=== PATIENT | female | born 1960 | race Caucasian/White ===

== ENCOUNTER 2017-03-22 09:13 | Emergency (ER) | payer BC ==
[~2017-03-22] VITALS: Ht 180.3 cm; Wt 79.4 kg
--- NOTE | 2017-03-22 09:22 | ER Report ---
History and Physical Time Seen By MD: 09:21 Hx. of Stated Complaint: Bumped left wrist 2 days ago. Now with continued pain. No swelling. No pacerations/abrasions HPI/ROS Hit left wrist onto a chair and now with pain with movement. No other injuries. No lacerations/abrasions. Remainder of the 14 system rev: Yes Allergies: Coded Allergies: No Known Drug Allergies (Unverified , 03/22/17) Home Meds Active Scripts Ketorolac Tromethamine (KETOROLAC TROMETHAMINE) 10 Mg Tab, 10 MG PO Q6H for 7 Days, #30 TAB Prov:DARIAN JIMENEZ MD 03/22/17 Reported Medications [[place]] No Conflict Check 03/22/17 Reviewed Nurses Notes: Yes Old Medical Records Reviewed: No Hx Smoking: Yes Smoking Status: Former Smoker Exposure to Second Hand Smoke?: No Hx Substance Use Disorder: No Hx Alcohol Use: No Constitutional Well appearing, non toxic, no distress Physical Exam HEENT: PERRL Neck: No midline c-spine TTP CV: RRR, no m/r/g Lungs: cta no w/r/r MSK: Left wrist with TTP at the volar ulnar area. No suffbox TTP. FROM. No effusions, no erythema, no abrasions/lacerations Medical Decision Making EKG/Imaging Imaging Left wrist: INTERPRETED BY ME: no fracture/dislocation. No soft tissue swelling. Normal wrist xray ED Course/Re-evaluation ED Course Minor blunt trauma to left wrist. N/V in tact thoughout. No evidence of infection. No fracture/dislocation on xray. No snuffbox TTP. Will place in splint and NSAIDs for pain relief Decision to Disposition Date: Mar 22, 2017 Decision to Disposition Time: 16:00 Depart Departure Latest Vital Signs Impression: Primary Impression: Contusion Condition: Improved Disposition: HOME OR SELF-CARE New Scripts Ketorolac Tromethamine (KETOROLAC TROMETHAMINE) 10 Mg Tab 10 MG PO Q6H for 7 Days, #30 TAB Prov: DARIAN JIMENEZ MD 03/22/17 Patient Instructions: Contusion in Adults (ED) Problem Qualifiers Primary Impression: Contusion Encounter type: initial encounter Contusion area: wrist Laterality: left Qualified Codes: S60.212A - Contusion of left wrist, initial encounter DARIAN JIMENEZ MD Mar 22, 2017 09:22
[2017-03-22] MEDS ORDERED: [UNRECOGNIZED DRUG - OTHER] (09:25)
[2017-03-22] MEDS ORDERED: IBUPROFEN 600 MG TAB PO ONE (09:40)
[2017-03-22] MEDS ORDERED: APAP/HYDROCODONE 325/5 TAB PO ONE (09:40)
--- NOTE | 2017-03-22 10:05 | RADIOLOGY IMAGING REPORT ---
FACILITY: [facility] - [place] PATIENT NAME: Jodie Headley : 1960 MR: [id number] V: [id number] EXAM DATE: ORDERING PHYSICIAN: DARIAN JIMENEZ TECHNOLOGIST: Location: [facility] - [place] Patient: Jodie Headley : 1960 Visit/Account:[id number] Date of Sevice: 03/22/2017 WRIST LEFT MIN 3 VIEW INDICATION: Nontraumatic pain and swelling COMPARISON: None available FINDINGS: 3 views obtained. No fracture or osseous destruction. Normal joint spaces and soft tissue s. IMPRESSION: Normal wrist radiographs. Report Dictated By: Enrique Gonzalez MD at 03/22/2017 9:59 AM Report E-Signed By: Enrique Gonzalez MD at 03/22/2017 10:00 AM WSN:[id number]
[2017-03-22 11:00] VITALS: BP 121/84
[2017-03-22] MEDS ORDERED: KET10 PO (11:17)
== END 2017-03-22 11:25 | disposition home or self-care (01) ==
LOC: ER 09:13
DX: S60.212A Contusion of left wrist, initial encounter (principal)
CPT/HCPCS: 73110; 99282; L3908

== ENCOUNTER → 2017-12-24 | Outpatient (CLI) | payer BC ==
[~2017-12-24] MED LIST: IOPAMIDOL 76% 75 ML INFUS BTL 75 ML ONE; KET10 PO; LEVO1TAB9 PO; [UNRECOGNIZED DRUG - OTHER]
--- NOTE | 2017-12-24 08:55 | RADIOLOGY IMAGING REPORT ---
[place] [facility] [place] NAME: Jodie Headley : 1960 MR: [id number] V: [id number] EXAM DATE: ORDERING PHYSICIAN: OPAL CORREA TECHNOLOGIST: Location: [facility] Patient: Jodie Headley : 1960 Visit/Account:[id number] Date of Sevice: 12/24/2017 CHEST W W/O CONTRAST History: Mass/lump upper left chest ADDITIONAL CLINICAL HISTORY: None TECHNIQUE: Contiguous axial images were performed through the chest to the level of the adrenal gla nds with and without IV contrast. Coronal and sagittal reformatting was also performed.Dose Lowerin g Technique One of the following dose optimization techniques was utilized in the performance of this exam: Autom ated exposure control; adjustment of the mA and/or kV according to the patient's size; or use of an i terative reconstruction technique. Specific details can be referenced in the facility's radiology C T exam operational policy. Contrast: 75 mL Isovue-370 COMPARISON STUDIES: none. Lungs / Pleura: Mildly irregular biapical pleural thickening and fibrotic changes are seen. This a ppears more prominent nodular on the left relative to the right. In the posterior lateral right uppe r lobe there is a 6 mm slightly irregular pulmonary nodule with fibrotic stranding towards the latera l pleural margin. This is best seen on image 97 of series 6. This may be related to the fibrotic ch konrad in the right pulmonary apex although discrete nodule not excluded. Also noted is a 3 mm noncalc ified nodule posterior aspect right upper lobe best seen on image 78 of series 6. Mediastinum/nodes: negative. Heart and vessels: negative. Musculoskeletal / Body wall: Metallic BB was placed on the patient's skin in location of the palpab le finding. This is along the anteromedial superior left thorax. A discrete mass is not seen in thi s location. There is a minimal S-shaped scoliosis of the thoracic spine. Mild spondylotic changes are present Upper abdomen: negative. IMPRESSION: There is irregular biapical pleural thickening and fibrotic change identified. This is more prominen t on the left relative to the right. Short-term interval follow-up recommended to exclude a developi ng mass lesion There are two slightly irregular pulmonary nodules seen in the right upper lobe. These may be second angel to the fibrotic changes however follow-up according to the Fleischner Society recommendations sug gest For multiple nodules measuring less than 6 mm, in a low risk patient (minimal or absent smoking history, no history of malignancy), no routine followup is recommended. In a high risk patient (smoki ng or malignancy history), optional 12 month followup can be obtained. A metallic BB was placed on the patient's skin location of the palpable finding along the anteromedia l superior left thorax. A discrete mass is not seen. If further diagnostic imaging is desired ultra sound or MR may be helpful Report Dictated By: Briana Zavala MD at 12/24/2017 8:37 AM Report E-Signed By: Briana Zavala MD at 12/24/2017 8:51 AM ROBINN:SIMA
== END ==
LOC: CT 01:40
PROVIDERS: ATTEND Family Medicine
DX: M41.84 Other forms of scoliosis, thoracic region (principal); R91.8 Other nonspecific abnormal finding of lung field; M47.896 Other spondylosis, lumbar region
CPT/HCPCS: 71270; Q9967

== ENCOUNTER → 2018-05-20 | Outpatient (CLI) | payer BC ==
[~2018-05-20] MED LIST changes: -IOPAMIDOL 76% 75 ML INFUS BTL 75 ML ONE
--- NOTE | 2018-05-20 17:06 | RADIOLOGY IMAGING REPORT ---
FACILITY: [facility] - [place] PATIENT NAME: Alexandra Longoria : 1960 MR: [id number] V: [id number] EXAM DATE: ORDERING PHYSICIAN: OPAL CORREA TECHNOLOGIST: Location: [facility] - [place] Patient: Alexandra Longoria : 1960 Visit/Account:[id number] Date of Sevice: 05/20/2018 CT CHEST W/O CONTRAST History: Lump on clavicle, lung nodule follow-up, history of asthma TECHNIQUE: Contiguous axial images were performed through the chest to the level of the adrenal gla nds. No IV contrast was administered. Coronal and sagittal reformatting was also performed.Dose Lower ing Technique One of the following dose optimization techniques was utilized in the performance of this exam: Autom ated exposure control; adjustment of the mA and/or kV according to the patient's size; or use of an i terative reconstruction technique. Specific details can be referenced in the facility's radiology C T exam operational policy. COMPARISON STUDIES: December 24, 2017. Lungs / Pleura: The biapical fibrotic changes appear similar to the prior study The previously noted 6 mm slightly irregular pulmonary nodule fibrotic stranding towards the lateral pleural margin in the right upper lobe appears relatively unchanged in size and is best appreciated o n image 78 of series 4 The 3 mm noncalcified nodule previously noted posterior aspect right upper lobe is unchanged and is b est seen on image 57 Mediastinum/nodes: negative. Heart and vessels: negative. Musculoskeletal / Body wall: There is a very gentle S-shaped scoliosis of the thoracic spine with m ild spondylotic changes. Clavicular mass is not identified Upper abdomen: Visualized abdominal viscera negative. IMPRESSION: Previous seen noted six moment or slightly irregular pulmonary nodule fibrotic stranding towards the lateral pleural margin of the right upper lobe appears relatively unchanged in size. The 3 mm noncal cified nodule in the posterior aspect right upper lobe also appears unchanged The biapical fibrotic changes also appear relatively stable FLEISCHNER SOCIETY FOLLOW-UP GUIDELINES FOR NEWLY DETECTED INCIDENTAL NODULES IN PERSONS 35 YEARS OF AGE OR OLDER. *These recommendations do NOT apply to lung cancer screening, patients with immunosuppression or coral ents with a known primary malignancy. MULTIPLE SOLID NODULES If nodule size is < 6 mm: * Low risk patient ? No routine follow-up. * High risk patient ? Optional CT at 12 months. If nodule size is 6-8 mm: * Low risk patient ? CT at 3-6 months, then consider CT at 18-24 months if no change. * High risk patient ? CT at 3-6 months, then CT at 18-24 months if no change. If nodule size is > 8 mm: * Low risk patient ? CT at 3-6 months, then consider CT at 18-24 months if no change. * High risk patient ? CT at 3-6 months, then consider CT at 18-24 months if no change. LOW RISK PATIENT: Minimal or absent history of tobacco use and of other known risk factors. HIGH RISK PATIENT: Tobacco use, family history of lung cancer, upper pulmonary lobe location of nodul e, presence of emphysema, pulmonary fibrosis, older age. Patti H, Sarina DP, Ramón ACEVES, et al. Guidelines for Management of Incidental Pulmonary Nodules Dete cted on CT Images: From the Fleischner Society 2017. Radiology. [facility] Report Dictated By: Briana Zavala MD at 05/20/2018 4:45 PM Report E-Signed By: Briana Zavala MD at 05/20/2018 5:01 PM WSN:[id number]
== END ==
LOC: CT 14:17
PROVIDERS: ATTEND Family Medicine
DX: R91.8 Other nonspecific abnormal finding of lung field (principal)
CPT/HCPCS: 71250

== ENCOUNTER → 2018-10-06 | Outpatient (CLI) | payer BC ==
--- NOTE | 2018-10-07 09:56 | RADIOLOGY IMAGING REPORT ---
[place] [facility] [place] RICH WILLARD : [id number] MR: [id number] V: [id number] EXAM DATE: ORDERING PHYSICIAN: LANI ALCANTARA TECHNOLOGIST: Arely Car PROCEDURE: BILATERAL DIGITAL SCREENING MAMMOGRAM WITH CAD ASSISTED INTERPRETATION & 3D TOMOSYNTHESIS REASON FOR STUDY: Screening. FAMILY HISTORY OF BREAST CANCER: None. BREAST PROCEDURES/TREATMENTS: None. COMPARISON: 01/08/17, 07/07/14, 05/12/13. VIEWS OBTAINED: Bilateral 2D & 3D full field CC & MLO projections. BREAST DENSITY: The breasts are heterogeneously dense which can obscure small masses. MAMMOGRAM FINDINGS: The parenchymal pattern has remained stable allowing for difference in mammographic technique & patient positioning. IMPRESSION: BIRADS 1: Negative. DIAGNOSTIC CATEGORY 1--NEGATIVE. RECOMMENDATIONS: ROUTINE MAMMOGRAM AND CLINICAL EVALUATION. Dictated by: Briana Zavala M.D. on 10/06/2018 at 16:15 Transcribed by: OKSANA on 10/07/2018 at 8:15 Approved by: Briana Zavala M.D. on 10/07/2018 at 9:51 [facility]
== END ==
LOC: MAMO 00:46
PROVIDERS: ATTEND Obstetrics & Gynecology
DX: Z12.31 Encounter for screening mammogram for malignant neoplasm of breast (principal)
CPT/HCPCS: 77063; 77067